=== PATIENT | male | born 1995 ===

== ENCOUNTER 2017-08-16 00:05 | Emergency (ER) | payer OTHER ==
[2017-08-16] MEDS ORDERED: diPHENhydraMINE PO* 25 MG PO ONE (00:48)
[2017-08-16] MEDS ORDERED: Metoclopramide TAB* 10 MG PO ONE (00:48)
[2017-08-16] MEDS ORDERED: Ibuprofen TAB* 600 MG PO ONE (01:00)
--- NOTE | 2017-08-16 01:11 | ED ---
Headache - HPI Summary HPI Summary: Complains of sudden onset spots in his vision bilaterally, vague peripheral vision bilaterally, right side headache worse behind right eye, N/V 1 this afternoon. Denies history of headache, history of vision issues. Patient does wear contact lenses and/or glasses. Prescription glasses prescription is up-to- date. Denies trauma to the eyes, neck stiffness, ear pain, fever, cough, sore throat, CP, SOB, D, abdomen pain, change in urinary BM. Medical history is none. Denies EtOH, illegal drug use. - History Of Current Complaint Chief Complaint: EDHeadache Stated Complaint: VISION ISSUE Time Seen by Provider: 08/16/17 00:35 Hx Obtained From: Patient, Family/Behavioral Health Tech Onset/Duration: Sudden Onset Initially Headache Was: Moderate Currently Pain Is: Moderate Timing: Constant Character: Sharp, Throbbing Location of Headache: Frontal - Allergies/Home Medications Allergies/Adverse Reactions: Allergies Allergy/AdvReac Type Severity Reaction Status Date / Time No Known Allergies Allergy Verified 08/16/17 00:11 PMH/Surg Hx/FS Hx/Imm Hx Infectious Disease History: No Infectious Disease History: Denies: Traveled Outside the [place] in Last 30 Days - Social History Alcohol Use: Occasionally Substance Use Type: Reports: Marijuana Substance Use Comment - Amount & Last Used: one month ago Smoking Status (MU): Current Some Day Smoker Review of Systems Constitutional: Negative Positive: Other ENT: Negative Cardiovascular: Negative Respiratory: Negative Positive: Vomiting, Nausea Genitourinary: Negative Musculoskeletal: Negative Skin: Negative Positive: Headache Psychological: Normal All Other Systems Reviewed And Are Negative: Yes Physical Exam - Summary Physical Exam Summary: EOMs intact. No evidence of trauma to eyes. No conjunctival injection. No purulent drainage. Patient states vision change is bilateral. Neuro exam normal. Full range of motion of neck in flexion and extension without any indication of pain Triage Information Reviewed: Yes Vital Signs On Initial Exam: Initial Vitals Temp Pulse Resp BP Pulse Ox 98.0 F 74 16 143/89 98 08/16/17 00:08 08/16/17 00:08 08/16/17 00:08 08/16/17 00:08 08/16/17 00:08 Vital Signs Reviewed: Yes Appearance: Positive: Well-Appearing Skin: Positive: Warm Head/Face: Positive: Normal Head/Face Inspection Eyes: Positive: Normal ENT: Positive: Normal ENT inspection Neck: Positive: Supple Respiratory/Lung Sounds: Positive: Clear to Auscultation Cardiovascular: Positive: Normal Abdomen Description: Positive: Nontender Musculoskeletal: Positive: Normal Neurological: Positive: Normal Psychiatric: Positive: Normal AVPU Assessment: Alert - [place] Coma Scale Best Eye Response: 4 - Spontaneous Best Motor Response: 6 - Obeys Commands Best Verbal Response: 5 - Oriented Coma Scale Total: 15 Diagnostics - Vital Signs Vital Signs Temp Pulse Resp BP Pulse Ox 08/16/17 00:08 98.0 F 74 16 143/89 98 - Laboratory Result Diagrams: 08/16/17 01:05 08/16/17 01:05 Lab Statement: Any lab studies that have been ordered have been reviewed, and results considered in the medical decision making process. Re-Evaluation - Re-Evaluation 1 Re-Evaluation Time: 02:11 Comment: Patient vomited shortly after getting migraine cocktail PO. Will switch to Zofran ODT and Tylenol 2 Re-Evaluation Time: 02:49 Change: Improved Comment: Nausea controlled with Zofran ODT. But headache persists. Headache Course/Dx - Course Course Of Treatment: No batteries on premises to replace tonometer batteries. CT brain negative. Vital signs within normal limits. Recommend patient follow up with primary care. Headache improved with medication. Vital signs within normal limits - Diagnoses Provider Diagnoses: Headache, Nausea & vomiting, Vision changes Discharge - Sign-Out/Discharge Documenting (check all that apply): Discharge/Admit/Transfer Signing out patient TO: Varun Hill - 03:00 - Discharge Plan Condition: Improved Disposition: HOME Prescriptions: Ondansetron [Zofran Odt] 8 mg PO Q6HR PRN #10 tab.rapdis PRN Reason: Nausea Patient Education Materials: Migraine Headache (ED) Referrals: [facility] - Serge LIRA [Primary Care Provider] - Additional Instructions: Follow-up with primary care. Return to the ED for any new or worsening symptoms - Billing Disposition and Condition Condition: IMPROVED Disposition: HOME
[2017-08-16 01:19] LABS: ABS Basophils 0 10^3/ul (0-0.2); ABS Eosinophils 0.1 10^3/ul (0-0.6); ABS Lymphocytes 2.7 10^3/ul (1.0-4.8); ABS Monocytes 0.4 10^3/ul (0-0.8); ABS Neutrophils 5.5 10^3/ul (1.5-7.7); ABS Nucleated RBC 0 10^3/ul; Eosinophil % 0.9 % (0-6); Hematocrit 45 % (42-52); Hemoglobin 15.4 g/dl (14.0-18.0); Lymphocyte % 31.2 % (25-47); Mean Corpuscular HGB Conc 35 g/dl (31-36); Mean Corpuscular Hemoglobin 30 pg (27-31); Mean Corpuscular Volume 88 fL (80-94); Mean Platelet Volume 7.1 um3 (7.4-10.4); Nucleated Red Blood Cells % 0.1; Platelet Count 243 10^3/ul (150-450); Red Cell Distribution Width 13 % (10.5-15); White Blood Count 8.7 10^3/ul (3.5-10.8)
[2017-08-16] MEDS ORDERED: Ondansetron ODT TAB* 4 MG PO ONE (02:04)
[2017-08-16] MEDS ORDERED: Acetaminophen TAB* 325 MG PO ONE (02:05)
[2017-08-16] MEDS ORDERED: Ibuprofen TAB* 200 MG PO ONE (02:48)
[2017-08-16] MEDS ORDERED: Ketorolac INJ* 30 MG/ML 1 ML VIAL IV PUSH ONE (02:53)
[2017-08-16] MEDS: NS 0.9% 1000 ML* 2,000 ML IV ONE ×2 (03:31→03:36)
[2017-08-16 04:01] VITALS: BP 116/57
--- NOTE | 2017-08-16 04:06 | ED ---
Olya Braun Julia, scribed for Varun Hill MD on 08/16/17 at 0340 . Progress - Progress Note Progress Note: Patient is signed out from Balje[facility] CONNELL awaiting Brain CT report. He is now feeling much better, history reviewed and is not suggestive of SAH. He had an aura of odd visual symptoms, followed about 45 mins later with nausea and vomiting, and then shortly after that right sided headache. Brain CT reveals, as per radiologist: No acute pathology. 5.3cm temporal fossa arachnoid cyst. Dr. Hill has reviewed this report. Re-Evaluation - Re-Evaluation 1 Re-Evaluation Time: 02:11 Comment: Patient vomited shortly after getting migraine cocktail PO. Will switch to Zofran ODT and Tylenol 2 Re-Evaluation Time: 02:49 Change: Improved Comment: Nausea controlled with Zofran ODT. But headache persists. Course/Dx - Course Course Of Treatment: No batteries on premises to replace tonometer batteries - Diagnoses Provider Diagnoses: Headache, Nausea & vomiting, Vision changes Discharge - Sign-Out/Discharge Documenting (check all that apply): Discharge/Admit/Transfer - Discharge Plan Condition: Improved Disposition: HOME Prescriptions: Ondansetron [Zofran Odt] 8 mg PO Q6HR PRN #10 tab.rapdis PRN Reason: Nausea Patient Education Materials: Migraine Headache (ED) Referrals: [facility] - Serge LIRA [Primary Care Provider] - - Billing Disposition and Condition Condition: IMPROVED Disposition: HOME The documentation as recorded by the Olya lee Julia accurately reflects the service I personally performed and the decisions made by me, Varun Hill MD.
--- NOTE | 2017-08-16 07:58 | RAD ---
INDICATION: Headaches. Visual changes COMPARISON: None TECHNIQUE: Noncontrast axial source images were acquired from the skull base to the vertex. FINDINGS: Ventricles/sulci: The ventricles and cisterns are normal in size and configuration for age. Brain parenchyma: There is no focal parenchymal finding, evidence of intracranial mass, or intracranial mass effect. Intracranial hemorrhage:None. Extra-axial spaces: There is a 5.3 cm left middle cranial fossa arachnoid cyst. Calvarium: There is no calvarial fracture or other significant calvarial abnormality. There is minor remodeling in the left middle cranial fossa related to the arachnoid cyst Scalp: There is no evidence of scalp or extracalvarial soft tissue abnormality. Paranasal sinuses/mastoid: The paranasal sinuses and mastoid air cells are clear. Other: None. IMPRESSION: No acute intracranial findings. Left temporal arachnoid cyst.
== END 2017-08-16 04:00 | disposition home or self-care (01) ==
LOC: ED 00:05
DX: R51 Headache (principal); R11.2 Nausea with vomiting, unspecified; H53.9 Unspecified visual disturbance; Z72.0 Tobacco use
CPT/HCPCS: 36415; 70450; 80053; 83605; 85025; 86140; 99283; A9270-GY; J1885